=== PATIENT | male | born 1960 | race African-American/Black ===

== ENCOUNTER 2016-08-08 15:20 | Emergency (ER) ==
[2016-08-08] MEDS ORDERED: DILAUDID IM ONE (16:18)
--- NOTE | 2016-08-08 16:21 | PROVIDER DOCUMENTATION ---
HPI-Musculoskeletal Pain/Inj - GENERAL Chief Complaint: Flu Symptoms Stated Complaint: GOUT,SORE THROAT,SINUS,SORE ALL OVER Time Seen by Provider: 08/08/16 16:08 Source: patient - HX OF PRESENT ILLNESS-MUSKULOSKELTAL Nature of Presenting Problem: 56 year old AAM presents with c/o right toe pain for 2 days and nasal congestion for "years." pt reports he has a history of gout to the right great toe and this feels like a gout flare, last was several months ago. pt reports he cannot take NSAIDS due to his kidney issues, which is managed by Dr. Wisdom. pt reports taking all his regular medications as prescribed. nasal congestion started years ago, he has tried multiple 2nd generation antihistamines without relief. pt does not have any symptpms at this time. Review of Systems - Adult - REVIEW OF SYSTEMS - ADULT Constitutional: reports: no symptoms reported. denies: chills, fever, fatique Eyes: reports: no symptoms reported. denies: discharge, blurred vision, double vision Ears, Nose, Mouth & Throat: reports: see HPI, other (rhinorrhea). denies: ear discharge, ear pain, nose pain, loose teeth, throat pain, throat swelling Cardiovascular: reports: no symptoms reported. denies: chest pain, palpitations , syncope Respiratory: reports: no symptoms reported. denies: chronic cough, cough, shortness of breath, wheezing Gastrointestinal: reports: no symptoms reported. denies: abdominal pain, diarrhea, nausea, vomiting Genitourinary: reports: no symptoms reported. denies: dysuria, hematuria, urgency Musculoskeletal: reports: see HPI, joint pain, joint swelling. denies: bone pain, back pain, frequent leg cramps, muscle aches, muscle weakness, neck pain Integumentary: reports: no symptoms reported. denies: hives, itching, rash, skin sores/ulcer Neurological: reports: no symptoms reported. denies: ataxia, dizziness/vertigo Psychiatric: reports: no symptoms reported Endocrine: reports: no symptoms reported Hematologic/Lymphatic: reports: no symptoms reported Allergic/Immunologic: reports: no symptoms reported All Other Systems: Reviewed and Negative Past History - Adult - PAST MEDICAL HISTORY-ADULT Review of Records: reports: Old Records Reviewed, Nursing Assessment Review, Medications Reviewed, Social history reviewed & non-contributory. 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 negative: no apparent distress, moderate distress, severe distress Eyes: pink conjunctivae. negative: conjuctival exudate, pale conjunctivae, sclera injected, scleral icterus, subconjunctival hemorrhage Head, Ears, Nose, Mouth & Throat: normocephalic/atraumatic, moist mucous membranes, normal ENT inspection Neck: non-tender, full range of motion, supple, normal inspection. negative: C- spine tenderness, decresed ROM, ecchymosis, limited range of motion, pain on movement, tender lateral, tender midline, vertebral point tenderness Respiratory: chest non-tender, lungs clear, normal breath sounds, no pleuratic chest pain, no respiratory distress, no accessory muscle use Cardiovascular: normal peripheral pulses, regular rate, rhythm Chest/Breast: deferred Peripheral Pulses: radial (R): 3+, radial (L): 3+, dorsalis-pedis (R): 3+, dorsalis-pedis (L): 3+ Abdominal Exam: normal bowel sounds, non tender, soft Male Genitalia: deferred Rectal Exam: deferred Hemoccult Exam: deferred Lymphatic: no adenopathy Back Exam: normal inspection, no CVA tenderness, no vertebral tenderness Extremity: erythema (right 1st MTP with mild erythema, swelling, diffuse tenderness), inflammation, swelling, tenderness. negative: normal range of motion, non-tender, normal gait (walking with a cane due to the tenderness) Integumentary: normal color, warm/dry, blanching Neurologic: grossly normal, no motor/sensory deficits Psych/Mental Status: normal mood/affect, normal thought content, normal thought process, oriented x 3 - Glascow Coma Score Best Eye Response (Emerson): (4) open spontaneously Best Verbal Response (Emerson): (5) oriented Best Motor Response (Julian): (6) obeys commands Emerson Total: 15 Progress - PLAN OF CARE/RESULTS Progress/Plan/Lab Results: Orders Category Date Time Status Finger Stick Blood Sugar (ED) DIRECTED Care 08/08/16 16:19 Active DIRECT STREP Stat Lab 08/08/16 15:36 Completed Flu Swab [INFLUENZA SCREEN A/B] Stat Lab 08/08/16 15:36 Completed Hydromorphone [Dilaudid] Med 08/08/16 16:18 Discontinued 1 mg IM NOW ONE Vital Signs - 24 hr 08/08/16 08/08/16 15:33 16:45 Temperature 98.1 F Pulse Rate 95 H 78 Respiratory 20 18 Rate Blood Pressure 153/85 140/97 O2 Sat by Pulse 100 100 Oximetry Pt reports his daily finger sticks run in the 200-300's on a daily basis. Departure - Departure Time of Disposition Order: 16:19 DIAGNOSIS: Gout attack Qualifiers: Gout site: toe Gout etiology: unspecified cause Laterality: right Qualified Code(s): M10.9 - Gout, unspecified Allergic rhinitis Qualifiers: Allergic rhinitis trigger: unspecified Allergic rhinitis seasonality: unspecified seasonality Qualified Code(s): J30.9 - Allergic rhinitis, unspecified Disposition: HOME 01 Certified Medical Emergency: Emergent Condition: Stable Additional Instructions: Follow up wit your primary care doctor as needed. ED Follow Up Instructions: You have been treated by a care provider in the Emergency Department. These instructions are being provided to you so you can have an understanding of how to care for yourself upon discharge. Upon discharge from the Emergency Department, you are responsible for making arrangements for follow-up care by a physician of your choice. Take all prescribed medications as directed. Return to the Emergency Department immediately for any new or worsening symptoms. You may call the Physician Referral phone number at [phone] to obtain a list of Physicians who are taking new patients. Prescriptions: Hydrocodone/APAP 7.5 mg/325 mg [Orange-7.5] 1 each PO Q6H PRN PRN #10 tablet PRN Reason: Pain Referrals: Garza,Bryan Tai [Primary Care Provider] - Forms: Return to School/Parent Work Instructions: Gout, [id number], Allergic Rhinitis Attestation - Physician/ BARB Attestation Patient care was provided by Advanced Practice Provider:: Yes Advanced Practice Provider:: Alex Avila Advanced Practice Provider documentation review:: The Mid-level provider documentation, treatment plan and medical decision making was reviewed by the physician who agrees with all treatment and medical decision making by the MLP.
[2016-08-08 16:45] VITALS: BP 140/97
== END 2016-08-08 16:45 | disposition home or self-care (01) ==
LOC: ED 15:20
DX: M10.9 Gout, unspecified (principal); J30.9 Allergic rhinitis, unspecified; M79.674 Pain in right toe(s); M25.474 Effusion, right foot; J34.89 Other specified disorders of nose and nasal sinuses; I10 Essential (primary) hypertension; E11.9 Type 2 diabetes mellitus without complications; E66.9 Obesity, unspecified; Z87.891 Personal history of nicotine dependence; Z79.899 Other long term (current) drug therapy; Z79.4 Long term (current) use of insulin
CPT/HCPCS: 82948; 87081; 87430; 87804; 96372; J1170